=== PATIENT | male | born 1970 | race Caucasian/White ===

== ENCOUNTER 2023-11-20 16:34 | Inpatient (IN) | payer OTHER ==
[2023-11-20] MEDS ORDERED: ACETAMINOPHEN INJECTION 100 ML IVPB ONE (17:16)
[2023-11-20 17:28] LABS: HEMATOCRIT 32.9 % (35.4-49); HEMOGLOBIN 11.2 G/dL (11.7-16.9); MCH 30.9 pg (25.7-33.7); MEAN CELL VOLUME 91.2 fl (80-96); MEAN PLT VOLUME 9.2 fl (7.5-11.1); PLATELET COUNT 101.8 10^3/uL (134-434); RBC 3.61 10^6/uL (4.00-5.60); RDW 13.5 % (11.9-15.9); WHITE BLOOD COUNT 8.2 10^3/uL (4.0-10.8)
[2023-11-20] MEDS: ACETAMINOPHEN 1000 MG/100 ML BAG IVPB ONE (17:30)
[2023-11-20] MEDS: SODIUM CHLORIDE 0.9% 1000 ML INFUS.BAG IV STA (17:30)
[2023-11-20 17:40] LABS: ALBUMIN 3.8 g/dl (3.4-5.0); ALK PHOS 39 U/L (45-117); ANION GAP 11 mmol/L (4-13); BILIRUBIN,TOTAL 0.7 mg/dl (0.2-1); CALCIUM 8.8 mg/dl (8.5-10.1); CHLORIDE 100 mmol/L (98-107); CO2 23 mmol/L (21-32); CREATININE 2.5 mg/dl (0.6-1.3); GLUCOSE,RANDOM 157 mg/dl (74-106); POTASSIUM 3.5 mmol/L (3.5-5.1); SGOT/AST 35 U/L (15-37); SGPT/ALT 22 U/L (7-52); SODIUM 134 mmol/L (136-145); TOT PROT 6.2 g/dl (6.4-8.2)
[2023-11-20 18:04] LABS: PLATELET ESTIMATE ADEQUATE
[2023-11-20 18:07] LABS: VENOUS BASE EXCESS 1.6 mmol/L (-2-2); VENOUS O2 SATURATION 81.3 % (70-80); VENOUS PCO2 35.4 mmHg (38-52); VENOUS PH 7.464 (7.310-7.410)
[2023-11-20] MEDS ORDERED: PIPERACILLIN/TAZOBACTAM 3.375 GM VIAL IVPB ONE (18:14)
[2023-11-20] MEDS ORDERED: VANCOMYCIN 1,000 MG VIAL (RESTRICTED TO ID ONLY) ONE (18:14)
[2023-11-20] MEDS: PIPERACILLIN/TAZOB 3.375 GM 3.375 GM in DEXTROSE 5%-WATER - 50 ML IVPB ONE (18:40)
[2023-11-20] MEDS: VANCOMYCIN 1,000 MG in DEXTROSE 5%-WATER - 250 ML IVPB ONE (19:30)
[2023-11-20 21:53] VITALS: BMI 33.1
[2023-11-21] MEDS: LEVOTHYROXINE NA 50 MCG TABLET (FP) PO SCH (06:57)
[2023-11-21 08:58] LABS: CALCIUM 9.6 mg/dl (8.5-10.1); POTASSIUM 3.7 mmol/L (3.5-5.1)
[2023-11-21] MEDS: CEFTRIAXONE 1 GM in DEXTROSE 5%-WATER - 50 ML IVPB SCH (10:09)
[2023-11-21] MEDS: HEPARIN NA (PORCINE) 5,000 UNITS/ML 1ML VIAL SQ SCH (10:10)
[2023-11-21] MEDS: PSYLLIUM 5.85 GM PACKET PO SCH (10:10)
[2023-11-21] MEDS: ESCITALOPRAM OXALATE 20 MG TABLET PO SCH (10:11)
[2023-11-21] MEDS: lamoTRIgine 100 MG TABLET PO SCH (10:11)
[2023-11-21] MEDS: AZITHROMYCIN IVPB 500 MG/250 ML BAG IVPB SCH (10:11)
[2023-11-21 12:31] LABS: BASO % 0.2 % (0-2.0); HEMATOCRIT 38.8 % (35.4-49); HEMOGLOBIN 13.2 GM/dL (11.7-16.9); LYMPH % 10.1 % (8-40); MCH 30.3 pg (25.7-33.7); MEAN PLT VOLUME 8.8 fl (7.5-11.1); MONO % 5.8 % (3.8-10.2); NEUT % 83.9 % (42.8-82.8); PLATELET COUNT 118 10^3/uL (134-434); RBC 4.36 M/mm3 (4.00-5.60); RDW 13.9 % (11.9-15.9); WHITE BLOOD COUNT 9.6 K/mm3 (4.0-10.0)
[2023-11-21 13:14] LABS: ANISOCYTOSIS 0; MACROCYTOSIS 0
[2023-11-21] MEDS: cloZAPine 25 MG TABLET PO SCH (16:55)
[2023-11-21] MEDS: POLYETHYLENE GLYCOL (HEALTHYLAX) 3350 17 GM PACKET PO SCH ×2 (16:55→22:30)
[2023-11-21] MEDS: cloZAPine 100 MG TABLET PO SCH (22:29)
[2023-11-21] MEDS: DIVALPROEX NA *ER* EXTEND REL 500 MG TABLET.SA (FP) PO SCH (22:31)
[2023-11-22] MEDS: ACETAMINOPHEN 325 MG TABLET (FP) PO PRN (08:35)
[2023-11-22 09:03] LABS: HEMATOCRIT 34.6 % (35.4-49); HEMOGLOBIN 11.2 G/dL (11.7-16.9); MCH 29.3 pg (25.7-33.7); MCHC 32.4 g/dl (32.0-35.9); MEAN CELL VOLUME 90.6 fl (80-96); MEAN PLT VOLUME 9.5 fl (7.5-11.1); PLATELET COUNT 127.4 10^3/uL (134-434); RBC 3.82 10^6/uL (4.00-5.60); RDW 13.9 % (11.9-15.9); WHITE BLOOD COUNT 7.5 10^3/uL (4.0-10.8)
[2023-11-22 09:46] LABS: ANION GAP 10 mmol/L (4-13); CALCIUM 9.2 mg/dl (8.5-10.1); CHLORIDE 107 mmol/L (98-107); CO2 27 mmol/L (21-32); CREATININE 1.6 mg/dl (0.6-1.3); GLUCOSE,RANDOM 105 mg/dl (74-106); POTASSIUM 3.7 mmol/L (3.5-5.1); SODIUM 144 mmol/L (136-145)
[2023-11-22] MEDS ORDERED: guaiFENesin/D-METHORPHAN HB 10 ML UNIT-DOSE CUPS PO PRN (10:32)
[2023-11-22] MEDS ORDERED: CEFEPIME HCL 2 GM VIAL (RESTRICTED TO ID) IVPB SCH (10:45)
[2023-11-22] MEDS ORDERED: ACETAMINOPHEN INJECTION 100 ML IVPB ONE (15:00)
[2023-11-22] MEDS: ACETAMINOPHEN 1000 MG/100 ML BAG IVPB PRN (15:15)
[2023-11-22 16:24] LABS: ARTERIAL BLD GAS O2 SATURATION 40.7 % (95-98); ARTERIAL BLOOD GAS BASE EXCESS -0.2 mmol/L (-2-2); ARTERIAL BLOOD GAS pH 7.361 (7.350-7.450)
[2023-11-22 16:27] LABS: ARTERIAL BLOOD GAS PO2 24.2 mmHg (80-100)
[2023-11-22] MEDS: ALBUTEROL SO4 2.5/IPRATROPIUM 0.5 INH SOL 3 ML VIAL.NEB. NEB SCH (16:43)
[2023-11-22] MEDS: DEXTROSE 5%-0.45% SALINE 1,000 ML IV SCH (17:48)
[2023-11-22] MEDS ORDERED: CEFEPIME 2 GM in DEXTROSE 5%-WATER 100 ML IVPB SCH (18:00)
[2023-11-22] MEDS: PIPERACILLIN/TAZOB 4.5 GM 4.5 GM in DEXTROSE 5%-WATER 100 ML IVPB SCH (18:13)
[2023-11-22 19:42] LABS: VENOUS BASE EXCESS 3.1 mmol/L (-2-2); VENOUS O2 SATURATION 24.4 % (70-80); VENOUS PCO2 50.1 mmHg (38-52); VENOUS PH 7.386 (7.310-7.410)
[2023-11-22] MEDS: VANCOMYCIN/WATER FOR INJ (PEG) 1,000 MG/200 ML BAG IVPB ONE (20:52)
[2023-11-23 04:13] LABS: ARTERIAL BLD GAS O2 SATURATION 93.3 % (95-98); ARTERIAL BLOOD GAS BASE EXCESS 2.3 mmol/L (-2-2); ARTERIAL BLOOD GAS PO2 62.8 mmHg (80-100); ARTERIAL BLOOD GAS pH 7.464 (7.350-7.450)
[2023-11-23 04:16] LABS: ALLENS TEST POSITIVE
[2023-11-23 04:17] LABS: VENT MODE ST; VENT RATE 16
[2023-11-23 04:59] LABS: HEMATOCRIT 29.5 % (35.4-49); HEMOGLOBIN 10.2 GM/dL (11.7-16.9); MCH 30.9 pg (25.7-33.7); MCHC 34.6 g/dl (32.0-35.9); MEAN CELL VOLUME 89.5 fl (80-96); MEAN PLT VOLUME 7.9 fl (7.5-11.1); PLATELET COUNT 140 10^3/uL (134-434); RBC 3.29 M/mm3 (4.00-5.60); RDW 13.9 % (11.9-15.9); WHITE BLOOD COUNT 9.3 K/mm3 (4.0-10.0)
[2023-11-23 05:15] LABS: POTASSIUM 3.7 mmol/L (3.5-5.1)
[2023-11-23 05:17] LABS: CALCIUM 8.2 mg/dL (8.5-10.1)
[2023-11-23 05:18] LABS: ALBUMIN 2.7 g/dl (3.4-5.0); BLOOD UREA NITROGEN 21.1 mg/dL (7-18)
[2023-11-23 05:20] LABS: CREATININE 1.8 mg/dL (0.55-1.3)
[2023-11-23 05:22] LABS: BILIRUBIN,TOTAL 0.6 mg/dL (0.2-1); TOT PROT 6.4 g/dl (6.4-8.2)
[2023-11-23] MEDS ORDERED: ACETAMINOPHEN 1000 MG/100 ML BAG IVPB PRN (08:50)
[2023-11-23 09:25] LABS: ARTERIAL BLD GAS O2 SATURATION 99.2 % (95-98); ARTERIAL BLOOD GAS BASE EXCESS 3.8 mmol/L (-2-2); ARTERIAL BLOOD GAS pH 7.507 (7.350-7.450)
[2023-11-23 09:31] LABS: VENT MODE S/T
[2023-11-23 09:32] LABS: VENT RATE 16
[2023-11-23] MEDS: PIPERACILLIN/TAZOB 4.5 GM 4.5 GM in DEXTROSE 5%-WATER 100 ML IVPB SCH (09:33)
[2023-11-23] MEDS: ESCITALOPRAM OXALATE 20 MG TABLET PO SCH (09:33)
[2023-11-23] MEDS: methylPREDNISolone NA SUCC 40 MG/1 ML VIAL IVPUSH SCH (09:33)
[2023-11-23] MEDS: FUROSEMIDE 40 MG/4 ML INJECTABLE VIAL IVPUSH ONE (09:33)
[2023-11-23] MEDS: HEPARIN NA (PORCINE) 5,000 UNITS/ML 1ML VIAL SQ SCH (09:34)
[2023-11-23] MEDS: AZITHROMYCIN IVPB 500 MG/250 ML BAG IVPB SCH (10:19)
[2023-11-23] MEDS: PSYLLIUM 5.85 GM PACKET PO SCH (12:30)
[2023-11-23] MEDS: lamoTRIgine 100 MG TABLET PO SCH (12:30)
[2023-11-23] MEDS: ALBUTEROL SO4 2.5/IPRATROPIUM 0.5 INH SOL 3 ML VIAL.NEB. NEB SCH (12:49)
[2023-11-23] MEDS: SODIUM CHLORIDE 0.45% 1,000 ML IV SCH (17:16)
[2023-11-23] MEDS: POLYETHYLENE GLYCOL (HEALTHYLAX) 3350 17 GM PACKET PO SCH (22:33)
[2023-11-23] MEDS: DIVALPROEX NA *ER* EXTEND REL 500 MG TABLET.SA (FP) PO SCH (22:33)
[2023-11-23] MEDS: cloZAPine 100 MG TABLET PO SCH (22:33)
[2023-11-24 01:19] LABS: PH,URINE 5.5 (5.0-8.0); URINE APPEARANCE CLEAR; URINE BILIRUBIN NEGATIVE (NEGATIVE); URINE COLOR YELLOW; URINE GLUCOSE (UA) NEGATIVE (NEGATIVE); URINE KETONE NEGATIVE (NEGATIVE); URINE LEUK ESTERASE NEGATIVE (NEGATIVE); URINE NITRITE NEGATIVE (NEGATIVE); URINE PROTEIN NEGATIVE (NEGATIVE)
[2023-11-24 01:27] LABS: METHADONE, UR NEGATIVE (NEGATIVE)
[2023-11-24 01:28] LABS: OPIATES, URI NEGATIVE (NEGATIVE); PHENCYCLIDINE,URINE NEGATIVE (NEGATIVE); URINE AMPHETAMINES NEGATIVE (NEGATIVE); URINE BARBITURATES NEGATIVE (NEGATIVE); URINE BENZODIAZEPINES NEGATIVE (NEGATIVE)
[2023-11-24 01:29] LABS: COCAINE, UR NEGATIVE (NEGATIVE)
[2023-11-24] MEDS: LEVOTHYROXINE NA 50 MCG TABLET (FP) PO SCH (06:48)
[2023-11-24 07:06] LABS: HEMATOCRIT 29.7 % (35.4-49); HEMOGLOBIN 10.2 GM/dL (11.7-16.9); MCH 30.5 pg (25.7-33.7); MCHC 34.3 g/dl (32.0-35.9); MEAN PLT VOLUME 8.3 fl (7.5-11.1); PLATELET COUNT 159 10^3/uL (134-434); RBC 3.34 M/mm3 (4.00-5.60); RDW 13.6 % (11.9-15.9); WHITE BLOOD COUNT 10.1 K/mm3 (4.0-10.0)
[2023-11-24 07:40] LABS: POTASSIUM 3.5 mmol/L (3.5-5.1)
[2023-11-24 07:49] LABS: ALBUMIN 2.6 g/dl (3.4-5.0); BLOOD UREA NITROGEN 41.7 mg/dL (7-18); CALCIUM 8.9 mg/dL (8.5-10.1); MAGNESIUM 2.5 mg/dL (1.8-2.4)
[2023-11-24 07:52] LABS: CREATININE 1.9 mg/dL (0.55-1.3)
[2023-11-24 07:53] LABS: BILIRUBIN,TOTAL 0.6 mg/dL (0.2-1); TOT PROT 6.5 g/dl (6.4-8.2)
[2023-11-24] MEDS: ESCITALOPRAM OXALATE 10 MG TABLET PO SCH (09:12)
[2023-11-24 09:38] LABS: ARTERIAL BLD GAS O2 SATURATION 98.4 % (95-98); ARTERIAL BLOOD GAS BASE EXCESS 2.6 mmol/L (-2-2); ARTERIAL BLOOD GAS PO2 115.2 mmHg (80-100); ARTERIAL BLOOD GAS pH 7.465 (7.350-7.450)
[2023-11-24 09:42] LABS: ALLENS TEST POSITIVE
[2023-11-25 08:00] LABS: HEMATOCRIT 29.7 % (35.4-49); MCH 29.9 pg (25.7-33.7); MCHC 33.7 g/dl (32.0-35.9); MEAN CELL VOLUME 88.8 fl (80-96); MEAN PLT VOLUME 8.5 fl (7.5-11.1); PLATELET COUNT 194 10^3/uL (134-434); RBC 3.34 M/mm3 (4.00-5.60); RDW 13.4 % (11.9-15.9); WHITE BLOOD COUNT 15.8 K/mm3 (4.0-10.0)
[2023-11-25 08:17] LABS: POTASSIUM 3.6 mmol/L (3.5-5.1)
[2023-11-25 08:22] LABS: ALBUMIN 2.5 g/dl (3.4-5.0); CALCIUM 9.1 mg/dL (8.5-10.1)
[2023-11-25 08:25] LABS: CREATININE 1.8 mg/dL (0.55-1.3)
[2023-11-25 08:27] LABS: BILIRUBIN,TOTAL 0.4 mg/dL (0.2-1); TOT PROT 6.2 g/dl (6.4-8.2)
[2023-11-25] MEDS: HEPARIN NA (PORCINE) 5,000 UNITS/ML 1ML VIAL SQ SCH (22:06)
[2023-11-25] MEDS: methylPREDNISolone NA SUCC 40 MG/1 ML VIAL IVPUSH SCH (22:06)
[2023-11-26 07:31] LABS: HEMATOCRIT 31.8 % (35.4-49); HEMOGLOBIN 10.7 GM/dL (11.7-16.9); MCH 29.9 pg (25.7-33.7); MCHC 33.6 g/dl (32.0-35.9); MEAN CELL VOLUME 88.9 fl (80-96); MEAN PLT VOLUME 8.5 fl (7.5-11.1); PLATELET COUNT 227 10^3/uL (134-434); RBC 3.58 M/mm3 (4.00-5.60); RDW 13.3 % (11.9-15.9); WHITE BLOOD COUNT 13.1 K/mm3 (4.0-10.0)
[2023-11-26 07:51] LABS: POTASSIUM 4.2 mmol/L (3.5-5.1)
[2023-11-26 07:57] LABS: MAGNESIUM 2.5 mg/dL (1.8-2.4)
[2023-11-26 07:58] LABS: CREATININE 1.7 mg/dL (0.55-1.3); PHOSPHOROUS 4.1 mg/dL (2.5-4.9)
[2023-11-26 09:01] LABS: ANISOCYTOSIS 2+; MACROCYTOSIS 0
[2023-11-27] MEDS ORDERED: PIPERACILLIN/TAZOBACTAM 4.5 GM VIAL IVPB ONE (02:46)
[2023-11-27] MEDS: guaiFENesin/D-METHORPHAN HB 10 ML UNIT-DOSE CUPS PO PRN (03:22)
[2023-11-27 06:35] LABS: HEMATOCRIT 32.6 % (35.4-49); HEMOGLOBIN 11.2 GM/dL (11.7-16.9); MCH 30.7 pg (25.7-33.7); MCHC 34.3 g/dl (32.0-35.9); MEAN CELL VOLUME 89.8 fl (80-96); MEAN PLT VOLUME 8.4 fl (7.5-11.1); PLATELET COUNT 231 10^3/uL (134-434); RBC 3.63 M/mm3 (4.00-5.60); RDW 13.2 % (11.9-15.9); WHITE BLOOD COUNT 13.4 K/mm3 (4.0-10.0)
[2023-11-27 06:53] LABS: POTASSIUM 4.1 mmol/L (3.5-5.1)
[2023-11-27 07:03] LABS: ALBUMIN 2.5 g/dl (3.4-5.0); BLOOD UREA NITROGEN 37.6 mg/dL (7-18); CALCIUM 8.8 mg/dL (8.5-10.1); MAGNESIUM 2.3 mg/dL (1.8-2.4)
[2023-11-27 07:05] LABS: CREATININE 1.6 mg/dL (0.55-1.3); PHOSPHOROUS 3.5 mg/dL (2.5-4.9)
[2023-11-27 07:06] LABS: BILIRUBIN,TOTAL 0.6 mg/dL (0.2-1); TOT PROT 6.4 g/dl (6.4-8.2)
[2023-11-27] MEDS: predniSONE 20 MG TABLET (UD) PO SCH (10:53)
[2023-11-28 07:15] LABS: HEMATOCRIT 32.5 % (35.4-49); HEMOGLOBIN 10.8 GM/dL (11.7-16.9); MCH 29.8 pg (25.7-33.7); MCHC 33.3 g/dl (32.0-35.9); MEAN CELL VOLUME 89.4 fl (80-96); MEAN PLT VOLUME 8.3 fl (7.5-11.1); PLATELET COUNT 242 10^3/uL (134-434); RBC 3.63 M/mm3 (4.00-5.60); RDW 13.4 % (11.9-15.9); WHITE BLOOD COUNT 15.1 K/mm3 (4.0-10.0)
[2023-11-28 07:41] LABS: POTASSIUM 3.9 mmol/L (3.5-5.1)
[2023-11-28 07:42] LABS: BLOOD UREA NITROGEN 37.3 mg/dL (7-18); CALCIUM 8.6 mg/dL (8.5-10.1)
[2023-11-28 07:46] LABS: CREATININE 1.6 mg/dL (0.55-1.3)
[2023-11-29 08:43] LABS: POTASSIUM 3.9 mmol/L (3.5-5.1)
[2023-11-29 08:46] LABS: HEMATOCRIT 32.8 % (35.4-49); HEMOGLOBIN 11.1 GM/dL (11.7-16.9); MCH 30.2 pg (25.7-33.7); MCHC 33.9 g/dl (32.0-35.9); MEAN CELL VOLUME 88.9 fl (80-96); MEAN PLT VOLUME 8.3 fl (7.5-11.1); PLATELET COUNT 274 10^3/uL (134-434); RBC 3.69 M/mm3 (4.00-5.60); RDW 13.5 % (11.9-15.9); WHITE BLOOD COUNT 15.2 K/mm3 (4.0-10.0)
[2023-11-29 09:06] LABS: BLOOD UREA NITROGEN 31.5 mg/dL (7-18)
[2023-11-29 09:09] LABS: CREATININE 1.5 mg/dL (0.55-1.3)
[2023-11-29] MEDS: predniSONE 10 MG TABLET (UD) PO SCH (09:37)
[2023-11-29] MEDS ORDERED: guaiFENesin/D-METHORPHAN HB 10 ML UNIT-DOSE CUPS PO PRN (16:19)
[2023-11-29] MEDS: ALBUTEROL SO4 2.5/IPRATROPIUM 0.5 INH SOL 3 ML VIAL.NEB. NEB SCH (20:17)
[2023-11-29] MEDS: HEPARIN NA (PORCINE) 5,000 UNITS/ML 1ML VIAL SQ SCH (21:15)
[2023-11-29] MEDS: cloZAPine 100 MG TABLET PO SCH (21:28)
[2023-11-29] MEDS: DIVALPROEX NA *ER* EXTEND REL 500 MG TABLET.SA (FP) PO SCH (21:28)
[2023-11-29] MEDS: POLYETHYLENE GLYCOL (HEALTHYLAX) 3350 17 GM PACKET PO SCH (22:00)
[2023-11-30] MEDS: LEVOTHYROXINE NA 50 MCG TABLET (FP) PO SCH (06:00)
[2023-11-30 09:15] LABS: HEMATOCRIT 32.3 % (35.4-49); MCHC 34.2 g/dl (32.0-35.9); MEAN CELL VOLUME 87.9 fl (80-96); MEAN PLT VOLUME 8.6 fl (7.5-11.1); PLATELET COUNT 303 10^3/uL (134-434); RBC 3.67 M/mm3 (4.00-5.60); RDW 13.6 % (11.9-15.9); WHITE BLOOD COUNT 14.9 K/mm3 (4.0-10.0)
[2023-11-30 09:20] LABS: POTASSIUM 3.8 mmol/L (3.5-5.1)
[2023-11-30 09:35] LABS: BLOOD UREA NITROGEN 31.3 mg/dL (7-18); CALCIUM 8.8 mg/dL (8.5-10.1)
[2023-11-30 09:36] LABS: MAGNESIUM 2.2 mg/dL (1.8-2.4)
[2023-11-30 09:38] LABS: CREATININE 1.5 mg/dL (0.55-1.3); PHOSPHOROUS 3.2 mg/dL (2.5-4.9)
[2023-11-30] MEDS: lamoTRIgine 100 MG TABLET PO SCH (09:45)
[2023-11-30] MEDS: ESCITALOPRAM OXALATE 10 MG TABLET PO SCH (09:46)
[2023-11-30] MEDS: predniSONE 20 MG TABLET (UD) PO SCH (09:46)
[2023-11-30] MEDS: PSYLLIUM 5.85 GM PACKET PO SCH (09:47)
[2023-11-30] MEDS ORDERED: predniSONE 20 MG TABLET (UD) PO SCH (10:00)
[2023-11-30] MEDS ORDERED: predniSONE 10 MG TABLET (UD) PO SCH (10:00)
[2023-11-30 23:04] VITALS: RESP 18
[2023-12-01] MEDS: predniSONE 10 MG TABLET (UD) PO ONE (09:53)
[2023-12-01] MEDS ORDERED: predniSONE 10 MG TABLET (UD) PO ONE (10:00)
[2023-12-01 14:28] VITALS: BP 126/70; PULSE 96; TEMP 98
== END 2023-12-01 17:08 | disposition home or self-care (01) | DRG 871 ==
LOC: FER 16:34 → FM/S 19:55 → J4W 11-23 03:00 → J5S 11-29 16:00
PROVIDERS: ADMIT Internal Medicine; ATTEND Internal Medicine
DX: A41.89 Other specified sepsis (principal); G93.41 Metabolic encephalopathy; J69.0 Pneumonitis due to inhalation of food and vomit; J96.01 Acute respiratory failure with hypoxia; R65.21 Severe sepsis with septic shock; N17.9 Acute kidney failure, unspecified; J44.1 Chronic obstructive pulmonary disease with (acute) exacerbation; J44.0 Chronic obstructive pulmonary disease with (acute) lower respiratory infection; R29.6 Repeated falls; R53.1 Weakness; F20.9 Schizophrenia, unspecified; E86.0 Dehydration; R41.82 Altered mental status, unspecified; R26.81 Unsteadiness on feet; E66.9 Obesity, unspecified; Z68.33 Body mass index [BMI] 33.0-33.9, adult; E03.9 Hypothyroidism, unspecified; I12.9 Hypertensive chronic kidney disease with stage 1 through stage 4 chronic kidney disease, or unspecified chronic kidney disease; N18.9 Chronic kidney disease, unspecified
CPT/HCPCS: 0241U-QW; 36415; 36600; 70450-TC; 71045-TC-FY; 76775-TC; 80048; 80053; 80164; 80307; 81003; 82570; 82803; 83605; 83735; 84100; 84300; 84484; 85025; 85027; 85379; 87040; 87081; 87086; 87899; 93005; 93010; 93970-TC; 94640; 94660; 94761; 97116-GP; 97162-GP; 99291; J0131; J1644